=== PATIENT | male | born 1980 | race Hispanic/Latino ===

== ENCOUNTER 2022-02-23 13:24 | Emergency (ER) | payer OTHER ==
--- NOTE | 2022-02-23 14:19 | RAD REPORT ---
EXAM DESCRIPTION: RAD - Elbow Right 3 View - 02/23/2022 2:03 pm CLINICAL HISTORY: PAIN COMPARISON: No comparisons FINDINGS/IMPRESSION: No acute fracture. No malalignment. Olecranon spurring.
[2022-02-23] MEDS ORDERED: LIDOCAINE 1% MPF 5 ML VIAL ONE (14:49)
[2022-02-23] MEDS ORDERED: TETANUS & DIPHTHERIA TOX,ADULT 0.5 ML VIAL ONE (14:54)
--- NOTE | 2022-02-23 15:24 | ER ---
Nurse's Notes [facility] Name: Zenon Pedroza Age: 41 yrs Sex: Male : 1980 Arrival Date: 02/23/2022 Time: 13:25 Bed 9 Private MD: Diagnosis: Laceration without foreign body of left elbow;Abrasion of right upper arm Presentation: 02/23 13:44 Chief complaint: Patient states: Pt reports that approximately 45 minutes [employer] SAL[employer] he jh6 stepped off into a hole while at work and struck his right elbow on unknown object. 2cm laceration noted to right elbow. Bleeding is controlled. Pt denies striking his head, denies LOC. Reports no other injuries. Coronavirus screen: Vaccine status: Patient reports being unvaccinated. Ebola Screen: Patient negative for fever greater than or equal to 101.5 degrees Fahrenheit, and additional compatible Ebola Virus Disease symptoms Patient denies exposure to infectious person. Patient denies travel to an Ebola-affected area in the 21 days before illness onset. Initial Sepsis Screen: Does the patient meet any 2 criteria? No. Patient's initial sepsis screen is negative. Does the patient have a suspected source of infection? No. Patient's initial sepsis screen is negative. Risk Assessment: Do you want to hurt yourself or someone else? Patient reports no desire to harm self or others. Onset of symptoms was February 23, 2022 at 12:30. 13:44 Method Of Arrival: Ambulatory [facility] 13:44 Acuity: FLOYD 3 6 Triage Assessment: 13:47 General: Appears in no apparent distress. comfortable, Behavior is calm, cooperative. [facility] Pain: Complains of pain in right elbow Pain does not radiate. Pain currently is 5 out of 10 on a pain scale. Quality of pain is described as aching, Pain began suddenly, Is continuous. Historical: - Allergies: 13:47 No Known Allergies; [facility] - Home Meds: 13:47 None [Active]; [facility] - PMHx: 13:47 None; [facility] - PSHx: 13:47 None; [facility] - Immunization history:: Client reports having NOT received the Covid vaccine. Last tetanus immunization: unknown, Flu vaccine is not up to date. - Social history:: Smoking status: Patient denies any tobacco usage or history of. Screenin:55 Abuse screen: Denies threats or abuse. Denies injuries from another. Nutritional jl7 screening: No deficits noted. Tuberculosis screening: No symptoms or risk factors identified. Fall Risk None identified. Assessment: 15:35 Reassessment: Patient appears in no apparent distress at this time. Patient and/or jb4 family updated on plan of care and expected duration. Pain level reassessed. Patient is alert, oriented x 3, equal unlabored respirations, skin warm/dry/pink. Patient states feeling better. Patient states symptoms have improved. Vital Signs: 13:44 BP 133 / 86; Pulse 60; Resp 18; Temp 97.9; Pulse Ox 99% ; Weight 82.1 kg; Height 5 ft. jh6 9 in. (175.26 cm); Pain 5/10; 13:44 Body Mass Index 26.73 (82.10 kg, 175.26 cm) 6 ED Course: 13:25 Patient arrived in ED. as 13:26 Ashleigh Bueno FNP-C is PHCP. kb 13:26 Sree Villalobos DO is Attending Physician. kb 13:47 Triage completed. [facility] 13:47 Arm band placed on left wrist. Patient Pt seen by provider in triage. Bandage applied. [facility] 14:04 Elbow Right 3 View XRAY In Process Unspecified. EDMS 14:40 Sarah Prieto, RN is Primary Nurse. jl7 14:55 Patient has correct armband on for positive identification. jl7 15:35 No provider procedures requiring assistance completed. Patient did not have IV access jb4 during this emergency room visit. Administered Medications: 14:55 Drug: Tetanus Toxoid,Adsorbed 0.5 ml {Stationary Fireman: [employer]. Exp: 10/30/2023. Lot jl7 #: [id number]. } Route: IM; Site: right deltoid; 15:24 Follow up: Response: No adverse reaction jb4 15:05 Drug: Lidocaine (1 %) 1 vials {Note: administered by provider..} Volume: 5 ml; Route: jb4 Infiltration; 15:24 Follow up: Response: No adverse reaction jb4 Medication: 14:55 Vaccine Information Statement (VIS) provided today. Questions and/or concerns jl7 addressed. VIS edition date: March 12, 2021. Outcome: 15:23 Discharge ordered by . kb 15:35 Discharged to home ambulatory. jb4 15:35 Condition: stable 15:35 Discharge instructions given to patient, Instructed on discharge instructions, follow up and referral plans. Demonstrated understanding of instructions, follow-up care. 15:37 Patient left the ED. jb4 Signatures: Dispatcher [employer] EDAshleigh Santillan, INSIGHT DIRECTOR-C INSIGHT DIRECTOR-Venecia Funez James RN RN jb4 Sarah Prieto RN RN jl7 Ludmila Monroy RN RN jh6
--- NOTE | 2022-02-23 15:24 | EDPHYS ---
Physician Documentation [facility] Name: Zenon Pedroza Age: 41 yrs Sex: Male : 1980 Arrival Date: 02/23/2022 Time: 13:25 Bed 9 Private MD: ED Physician Sree Villalobos HPI: 02/23 22:57 This 41 yrs old Male presents to ER via Ambulatory with complaints of Elbow kb Injury. 22:57 The patient or guardian complains of an abrasion, injury, a laceration, pain, swelling, kb tenderness. The complaints affect the right tricep and right elbow. Context: The problem was sustained outdoors, resulted from a fall. Onset: The symptoms/episode began/occurred today. Treatment prior to arrival includes: no previous treatment. Modifying factors: The symptoms are alleviated by nothing. the symptoms are aggravated by movement. Associated signs and symptoms: Pertinent positives: pain, swelling, of the right elbow. Severity of symptoms: At their worst the symptoms were moderate, in the emergency department the symptoms are unchanged. The patient has not experienced similar symptoms in the past. The patient has not recently seen a physician. Pt reports he stepped in a hole and hit elbow on a piece of machinery. Multiple abrasions to right upper arm and small laceration to right elbow. Historical: - Allergies: 13:47 No Known Allergies; [facility] - Home Meds: 13:47 None [Active]; [facility] - PMHx: 13:47 None; [facility] - PSHx: 13:47 None; [facility] - Immunization history:: Client reports having NOT received the Covid vaccine. Last tetanus immunization: unknown, Flu vaccine is not up to date. - Social history:: Smoking status: Patient denies any tobacco usage or history of. ROS: 22:52 Constitutional: Negative for fever, chills, and weight loss. kb 22:52 MS/extremity: Positive for pain, of the right elbow. 22:52 Skin: Positive for abrasion(s), laceration(s), of the right elbow. 22:52 All other systems are negative. Exam: 22:56 Constitutional: This is a well developed, well nourished patient who is awake, alert, kb and in no acute distress. Head/Face: Normocephalic, atraumatic. ENT: Moist Mucous membranes Cardiovascular: Regular rate and rhythm with a normal S1 and S2. No gallops, murmurs, or rubs. No pulse deficits. Respiratory: Respirations even and unlabored. No increased work of breathing. Talking in full sentences MS/ Extremity: Pulses equal, no cyanosis. Neurovascular intact. Full, normal range of motion. Neuro: Awake and alert, GCS 15, oriented to person, place, time, and situation. Moves all extremities. Normal gait. Psych: Awake, alert, with orientation to person, place and time. Behavior, mood, and affect are within normal limits. 22:56 Skin: injury, laceration(s), the wound is approximately 1.5 cm(s), of the right elbow, kb that can be described as clean, no foreign body, irregular, without bleeding. Vital Signs: 13:44 BP 133 / 86; Pulse 60; Resp 18; Temp 97.9; Pulse Ox 99% ; Weight 82.1 kg; Height 5 ft. jh6 9 in. (175.26 cm); Pain 5/10; 13:44 Body Mass Index 26.73 (82.10 kg, 175.26 cm) jh6 Laceration: 15:22 Wound Repair of 1.5cm ( 0.6in ) subcutaneous laceration to right elbow. Irregularly kb shaped.. Distal neuro/vascular/tendon intact. Anesthesia: Wound infiltrated with 2 mls of 1% lidocaine. Wound prep: Extensive cleansing with hibiclenz by me, Wound irrigation with saline by me. Skin closed with 2 5-0 Prolene using simple sutures and sterile technique. Patient tolerated well. MDM: 13:38 Patient medically screened. kb 22:51 Data reviewed: vital signs, nurses notes. Data interpreted: Pulse oximetry: on room air kb is 99 %. Interpretation: normal. Counseling: I had a detailed discussion with the patient and/or guardian regarding: the historical points, exam findings, and any diagnostic results supporting the discharge/admit diagnosis, radiology results, the need for outpatient follow up, a family practitioner, to return to the emergency department if symptoms worsen or persist or if there are any questions or concerns that arise at home. 02/23 13:38 Order name: Elbow Right 3 View XRAY; Complete Time: 14:25 kb 02/23 13:38 Order name: Dressing - Wound; Complete Time: 15:35 kb 02/23 13:38 Order name: Gloves, Sterile; Complete Time: 14:54 kb 02/23 13:38 Order name: Prolene, Sutures; Complete Time: 14:55 kb 02/23 13:38 Order name: Setup Suture Tray; Complete Time: 14:54 kb Administered Medications: 14:55 Drug: Tetanus Toxoid,Adsorbed 0.5 ml {Tankman: [employer]. Exp: 10/30/2023. Lot jl7 #: [id number]. } Route: IM; Site: right deltoid; 15:24 Follow up: Response: No adverse reaction jb4 15:05 Drug: Lidocaine (1 %) 1 vials {Note: administered by provider..} Volume: 5 ml; Route: jb4 Infiltration; 15:24 Follow up: Response: No adverse reaction jb4 Disposition: 02/24 09:29 Co-signature as Attending Physician, Sree RENE was immediately available on-site ms3 in the Emergency Department for consultation in the care of the patient.. Disposition Summary: 02/23/22 15:23 Discharge Ordered Location: Home kb Condition: Stable kb Diagnosis - Laceration without foreign body of left elbow kb - Abrasion of right upper arm kb Followup: kb - With: Emergency Department - When: As needed - Reason: Worsening of condition Followup: kb - With: Private Physician - When: 2 - 3 days - Reason: Recheck today's complaints, Continuance of care, Re-evaluation by your physician Discharge Instructions: - Discharge Summary Sheet kb - Laceration Care, Adult, [id number] kb - Abrasion, [id number] kb Forms: - Medication Reconciliation Form kb - Thank You Letter kb - Antibiotic Education kb - Prescription Opioid Use kb Prescriptions: - Diclofenac Sodium 75 mg Oral tablet,delayed release (DR/EC) - take 1 tablet by ORAL route 2 times per day As needed; 30 tablet; Refills: 0, kb Product Selection Permitted Signatures: Dispatcher [employer] Ashleigh Mckinney FNP-C FNP-Ckb Bryson, James, RN RN jb4 Sarah Prieto RN RN jl7 Sree Villalobos DO DO ms3 Ludmila Monroy RN RN jh6
[2022-02-23 15:45] VITALS: BP 133/86; TEMP 97.9; O2SAT 99
== END 2022-02-23 15:37 | disposition home or self-care (01) ==
LOC: ER 13:24
PROC: 0JQG0ZZ Repair Right Lower Arm Subcutaneous Tissue and Fascia, Open Approach (ICD-10-PCS; principal; 2022-02-23)
DX: S51.011A Laceration without foreign body of right elbow, initial encounter (principal); S40.811A Abrasion of right upper arm, initial encounter; Z23 Encounter for immunization
CPT/HCPCS: 90714